=== PATIENT | male | born 1975 | race Caucasian/White ===

== ENCOUNTER → 2019-05-23 | Outpatient (CLI) | payer MEDICARE, OTHER ==
[~2019-05-23] VITALS: Ht 182.9 cm; Wt 64.0 kg
[~2019-05-23] MED LIST: ASPI-1522 PO; ATOR20TA86 PO; CALC-898 PO; DRON2.5C19 PO; GABA-531 PO; INSU100I26 SQ; LOPE-202 PO; METO5TAB95 PO; NORT10 PO; ONDA-104 PO
[2019-05-23 11:25] VITALS: BP 151/56
== END | disposition home or self-care (01) ==
LOC: HBOWC 10:31
PROVIDERS: ATTEND Podiatrist
DX: E11.622 Type 2 diabetes mellitus with other skin ulcer (principal); L97.821 Non-pressure chronic ulcer of other part of left lower leg limited to breakdown of skin; L60.2 Onychogryphosis